=== PATIENT | female | born 1995 | race American Indian/Alaskan Native ===

== ENCOUNTER 2017-02-03 13:59 | Emergency (ER) | payer MEDICAID ==
[2017-02-03 14:17] VITALS: BP 121/75
--- NOTE | 2017-02-03 16:27 | Ultrasound Report ---
FINAL REPORT EXAM: US OB \T\gt; = 14 WEEKS FETUS HISTORY: unable to feel movement TECHNIQUE: Transabdominal sonography of the pelvis. PRIORS: None. FINDINGS: There is a single, live intrauterine in breech presentation. heart motion is detected and heart rate is 152 beats per minute. Placenta is located posterior and there is no evidence of previa. Cervical length 3.7 cm. Biometric data obtained and corresponds to an estimated gestational age of 17 weeks 6 days and an ultrasound estimated date of delivery of 08 July 2017 (it should be noted that an examination performed earlier in may yield more accurate dating). survey not performed. Amniotic fluid index is subjectively within normal limits. BPD: 3.95 cm HC: 14.35 cm AC: 11.32 cm FL: 2.75 cm Remainder of the uterus and adnexa grossly unremarkable. IMPRESSION: 1. Single, live intrauterine .
--- NOTE | 2017-02-03 18:25 | Emergency Department Report ---
Entered by AKIL LOW, acting as scribe for LEONARDO TERRELL NP. ED HPI - General Chief complaint: Urogenital-Female Stated complaint: 17 WEEKS PREG Time Seen by Provider: 02/03/17 14:25 Source: patient Mode of arrival: Ambulatory Limitations: No Limitations - History of Present Illness Initial comments: This is a 21 y/o female, nontoxic, well nourished in appearance, no acute signs of distress presents to the ER because she has not felt her baby moved since 1 week ago. Patient denies any abdominal pain, nausea, vomiting, fever, chills. dysuria, hematuria, vaginal discharge, vaginal bleeding, chest pain, SOB. Patient states she is approximately 17 1/2 weeks and she has an appointment with her OBGYN next week. Patient stated she does follow a OBGYN in [facility] that has been all normal during the office visits. No alleviating or aggravating factors. NKDA. , P:2, A:0. Complaint: other (haven't felt the baby moved ) Onset/Timin -: week(s) Consistency: constant Improves with: none Worsens with: none Associated symptoms: denies other symptoms. denies: nausea/vomiting, vaginal bleeding, vaginal discharge, abdominal pain, dysuria, headache, vision changes, malaise, dysparuenia, rash, seizure, shortness of breath, syncope, weakness, other (hematuria, fever, chills) Vaginal bleeding: none :: Yes Number of weeks : 17 OB History - Current : no complications OB History - Previous Pregnancies: no complications Pre-julián care: followed by OB - Related Data : 3 Para: 2 Ab: 0 Home Medications Medication Instructions Recorded Confirmed Last Taken No Known Home Medications [No 08/19/15 08/19/15 Unknown Reported Home Medications] Allergies Allergy/AdvReac Type Severity Reaction Status Date / Time No Known Allergies Allergy Verified 02/03/17 14:12 ED Review of Systems Comment: All other systems reviewed and negative Constitutional: denies: chills, fever Eyes: denies: eye pain, eye discharge, vision change ENT: denies: ear pain, throat pain Respiratory: denies: cough, shortness of breath, wheezing Cardiovascular: denies: chest pain, palpitations Endocrine: no symptoms reported Gastrointestinal: denies: abdominal pain, nausea, vomiting Genitourinary: denies: dysuria, hematuria, discharge, other (vaginal bleeding) Musculoskeletal: denies: back pain, joint swelling, arthralgia Skin: denies: rash, lesions Neurological: denies: headache, weakness, paresthesias Psychiatric: denies: anxiety, depression Hematological/Lymphatic: denies: easy bleeding, easy bruising ED Past Medical Hx - Past Medical History Previous Medical History?: No Hx Hypertension: No Hx Congestive Heart Failure: No Hx Diabetes: No Hx Deep Vein Thrombosis: No Hx Renal Disease: No Hx Sickle Cell Disease: No Hx Seizures: No Hx Asthma: No Hx COPD: No Hx HIV: No - Surgical History Past Surgical History?: No - Social History Smoking Status: Former Smoker Substance Use Type: None - Medications Home Medications: Home Medications Medication Instructions Recorded Confirmed Last Taken Type No Known Home Medications [No 08/19/15 08/19/15 Unknown History Reported Home Medications] ED Physical Exam - General Limitations: No Limitations General appearance: alert, in no apparent distress - Head Head exam: Present: atraumatic, normocephalic, normal inspection - Eye Eye exam: Present: normal appearance, PERRL, EOMI. Absent: scleral icterus, conjunctival injection, nystagmus, periorbital swelling, periorbital tenderness Pupils: Present: normal accommodation - ENT ENT exam: Present: normal exam, normal orophraynx, mucous membranes moist, TM's normal bilaterally, normal external ear exam - Neck Neck exam: Present: normal inspection, full ROM. Absent: tenderness, meningismus, lymphadenopathy, thyromegaly - Respiratory Respiratory exam: Present: normal lung sounds bilaterally. Absent: respiratory distress, wheezes, rales, rhonchi, stridor, chest wall tenderness, accessory muscle use, decreased breath sounds, prolonged expiratory - Cardiovascular Cardiovascular Exam: Present: regular rate, normal rhythm, normal heart sounds. Absent: bradycardia, tachycardia, irregular rhythm, systolic murmur, diastolic murmur, rubs, gallop - GI/Abdominal GI/Abdominal exam: Present: soft, normal bowel sounds. Absent: distended, tenderness, guarding, rebound, rigid, diminished bowel sounds - Rectal Rectal exam: Present: deferred - Extremities Exam Extremities exam: Present: normal inspection, full ROM, normal capillary refill. Absent: tenderness, pedal edema, joint swelling, calf tenderness - Back Exam Back exam: Present: normal inspection, full ROM. Absent: tenderness, CVA tenderness (R), CVA tenderness (L), muscle spasm, paraspinal tenderness, vertebral tenderness, rash noted - Neurological Exam Neurological exam: Present: alert, oriented X3, CN II-XII intact, normal gait, reflexes normal - Psychiatric Psychiatric exam: Present: normal affect, normal mood - Skin Skin exam: Present: warm, dry, intact, normal color. Absent: rash - Other Other exam information: 164 heart beat of fetas on Doppler portable ED Course Vital Signs 02/03/17 14:15 Temperature 98.6 F Pulse Rate 100 H Respiratory 18 Rate Blood Pressure 121/75 O2 Sat by Pulse 98 Oximetry - Reevaluation(s) Reevaluation #1: 02/03/17 14:51 Patient is able to speak in full sentences with no signs of distress noted. - Consultations Consultation #1: 02/03/17 16:34 [facility] attending cielo has been consulted about patient low HCG and normal US. Patient left AMA before was able to get a response from the attending on- call physician. ED Medical Decision Making - Medical Decision Making This is a 21-year-old female female that presents with concerns about 17 weeks . HCG is 15,000 and normal ultrasound measuring at 17 weeks 6 days. I consulted [facility] attending physician on-call regarding patient low hCG and normal ultrasound. Upon waiting for a response from the oncall attending patient stated she wants to leave AMA due to children at home. 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 ED Disposition Clinical Impression: Qualifiers: Weeks of gestation: 17 weeks Qualified Code(s): Z3A.17 - 17 weeks gestation of Disposition: DC-07 LEFT AGAINST MED ADVICE Is pt being admited?: No Does the pt Need Aspirin: No Condition: Stable Instructions: (ED) Additional Instructions: Follow-up with your REWORKER in 3-5 days or symptoms such as vaginal bleeding, nausea, vomiting, abdominal pain, has been short of breath return to the ER as possible Referrals: PRIMARY MD PADMINI [Primary Care Provider] - 3-5 Days JUSTICE WOLFE MD [Staff Physician] - 3-5 Days [facility] [Outside] - 3-5 Days [facility] [Outside] - 3-5 Days Forms: AMA Form This documentation as recorded by the DEVANTE rutledge ELIZABETH,accurately reflects the service I personally performed and the decisions made by me,LEONARDO TERRELL, MOUNIKA.
== END 2017-02-03 17:17 | disposition left against medical advice (07) ==
LOC: ED 13:59
DX: O36.8120 Decreased fetal movements, second trimester, not applicable or unspecified (principal); Z3A.17 17 weeks gestation of pregnancy
CPT/HCPCS: 36415; 76805; 84702

== ENCOUNTER 2017-06-29 16:57 | Inpatient (IN) | payer MEDICAID ==
--- NOTE | 2017-06-29 17:10 | History and Physical Report ---
History of Present Illness Date of examination: 06/29/17 Date of admission: 06/29/2017 Chief complaint: shabnam since 2pm started leaking yesterday History of present illness: 21 YO with care at [facility]. course uneventful. Was lost to care between 22 to 35 weeks. GBS negative. Past History Past Medical History: no pertinent history Past Surgical History: no surgical history BEHAVIOR SPECIALIST History: chlamydia Family/Genetic History: hypertension, cancer Social history: no significant social history - Obstetrical History Expected Date of Delivery: 07/11/17 Actual Gestation: 38 Week(s) 2 Day(s) : 3 Para: 2 Number of Living Children: 2 Medications and Allergies Allergies Allergy/AdvReac Type Severity Reaction Status Date / Time No Known Allergies Allergy Verified 02/03/17 14:12 Home Medications Medication Instructions Recorded Confirmed Last Taken Type No Known Home Medications [No 08/19/15 08/19/15 Unknown History Reported Home Medications] Review of Systems All systems: negative - Physical Exam Breasts: Positive: deferred Cardiovascular: Regular rate Lungs: Positive: Clear to auscultation Abdomen: Positive: normal appearance Vulva: both: normal Vagina: Positive: normal moisture Uterus: Positive: enlarged Anus/Rectum: Positive: normal perianal skin Extremities: Positive: normal Deep Tendon Reflex Grade: Normal +2 - Obstetrical FHR: category 1 Uterine Contraction Monitor Mode: External Cervical Dilatation: 9 Cervical Effacement Percentage: 100 station: 0 Uterine Contraction Pattern: Regular Uterine Contraction Intensity: Strong/Firm Results All other labs normal. Assessment and Plan A: Active labor at 38 + weeks P; Expect
[2017-06-29] MEDS ORDERED: PITOCin/NS 20 UNIT/1000ML DRIP 20,000 MILLIUNITS/1,000 ML BAG IV ONE (17:23)
--- NOTE | 2017-06-29 17:26 | Procedure Note ---
OB Delivery Note - Delivery Date of Delivery: 06/29/17 Surgeon: BALJEET GOLDSTEIN Estimated blood loss: 100cc - Vaginal Delivery presentation: vertex Delivery position: OA Intrapartum events: none Delivery monitor: external uterine Route of delivery: Delivery placenta: spontaneous Delivery laceration: none Anesthesia: none Delivery comments: of a viable female 5# 10oz @3658 on 06/29/17. Placenta delivered 3VCI. 8/9. FF @ U-2, lochia small. Mother and baby doing well. - Infant A at 1 minute: 8 at 5 minutes: 9 Gender: Female (5# 10 oz)
[2017-06-29] MEDS ORDERED: PITOCin/NS 20 UNIT/1000ML DRIP 20 UNITS/1,000 ML BAG IV SCH (18:00)
[2017-06-29] MEDS ORDERED: LACTATED RINGERS 1,000 ML IV SCH (18:00)
[2017-06-29] MEDS ORDERED: XYLOCAINE 2% INFILTRATI ONE (18:00)
[2017-06-29] MEDS ORDERED: TYLENOL PO PRN (18:05)
[2017-06-29] MEDS ORDERED: PHENERGAN PO PRN (18:05)
[2017-06-29] MEDS ORDERED: TUCKS PAD TP PRN (18:05)
[2017-06-29] MEDS ORDERED: LANSINOH TP PRN (18:05)
[2017-06-29] MEDS ORDERED: NORCO 5/325 PO PRN (18:05)
[2017-06-29] MEDS ORDERED: BENADRYL PO PRN (18:05)
[2017-06-29 18:31] LABS: Hematocrit 37.2 % (30.3-42.9); Hemoglobin 12.5 gm/dl (10.1-14.3); Mean Corpuscular HGB Conc 34 % (30-34); Mean Corpuscular Hemoglobin 31 pg (28-32); Mean Corpuscular Volume 93 fl (79-97); Platelet Count 189 K/mm3 (140-440); Red Cell Distribution Width 13.8 % (13.2-15.2)
[2017-06-29] MEDS ORDERED: SODIUM CHLORIDE FLUSH SYRINGE 10 ML IV SCH (19:00)
[2017-06-30] MEDS: MOTRIN PO SCH ×3 (02:19→13:29)
[2017-06-30 07:48] LABS: Hematocrit 35.2 % (30.3-42.9); Hemoglobin 11.7 gm/dl (10.1-14.3)
--- NOTE | 2017-06-30 12:36 | Progress Note ---
Assessment and Plan A: PPD #1 -stable P: Discharge home today Subjective - Subjective Date of service: 06/30/17 Principal diagnosis: Interval history: 21 YO with care at [facility]. course uneventful. Was lost to care between 22 to 35 weeks. GBS negative. Patient reports: appetite normal : doing well Objective - Vital Signs Latest vital signs: Vital Signs Temp Pulse Resp BP BP 06/30/17 08:52 98.3 F 64 18 105/75 06/30/17 05:24 18 06/30/17 00:30 98.6 F 68 16 113/67 06/29/17 20:30 98.6 F 69 16 105/61 06/29/17 18:39 74 103/69 06/29/17 18:24 71 113/74 06/29/17 18:23 71 112/73 06/29/17 18:10 75 110/73 06/29/17 18:09 98 F 16 06/29/17 17:55 81 114/65 Intake and Output 06/29/17 06/30/17 06/30/17 22:59 06:59 14:59 Intake Total 300 Output Total 1400 Balance -1100 Intake: Intake, Free Water 300 Output: Urine 1400 Void 1400 Other: Total, Output Amount 600 # Voids Void 1 1 Weight 205 lb Estimated Blood Loss 100 - Exam Breasts: Present: deferred Cardiovascular: Present: Regular rate Lungs: Present: Clear to auscultation Abdomen: Present: soft Vulva: both: normal Uterus: Present: fundal height below umbilicus Extremities: Present: normal Deep Tendon Reflex Grade: Normal +2 - Labs Labs: Abnormal lab results 06/29/17 Range/Units 18:15 WBC 14.4 H (4.5-11.0) K/mm3
--- NOTE | 2017-06-30 12:37 | Discharge Summary ---
Providers - Providers Date of Admission: 06/29/17 16:58 Date of discharge: 06/30/17 Attending physician: YISSEL SMALL MD Primary care physician: YISSEL SMALL MD Hospitalization Reason for admission: active labor Delivery: Episiotomy: none Laceration: none Discharge diagnosis: IUP at term delivered baby: female Condition at discharge: Good Disposition: DC-01 TO HOME OR SELFCARE Plan - Provider Discharge Summary Activity: routine, no sex for 6 weeks, no strenuous exercise Diet: routine Instructions: routine Additional instructions: [] Smoking cessation referral if applicable(refer to patient education folder for contact #) [] Refer to [facility] Booklet Call your doctor immediately for: * Fever > 100.5 * Heavy vaginal bleeding ( >1 pad per hour) * Severe persistent headache * Shortness of breath * Reddened, hot, painful area to leg or breast * Drainage or odor from incision. * Keep incision clean and dry at all times and follow doctor's instructions regarding bathing/showering - Follow up plan Follow up: YISSEL SMALL MD [Primary Care Provider] - 6 Weeks
[2017-06-30 21:42] VITALS: BP 104/64
== END 2017-06-30 21:30 | disposition home or self-care (01) | DRG 775 ==
LOC: TRG 16:57 → LD 16:58 → OB 20:09
PROVIDERS: ADMIT Obstetrics & Gynecology; ATTEND Obstetrics & Gynecology
PROC: 10E0XZZ Delivery of Products of Conception, External Approach (ICD-10-PCS; principal; 2017-06-29)
DX: O80 Encounter for full-term uncomplicated delivery (principal); Z3A.38 38 weeks gestation of pregnancy; Z37.0 Single live birth
CPT/HCPCS: 36415; 85014; 85018; 85027; 86850; 86900; 86901; J2590

== ENCOUNTER 2022-01-13 06:18 | Inpatient (IN) | payer MEDICAID ==
--- NOTE | 2022-01-13 07:00 | Procedure Note ---
OB Delivery Note - Delivery Date of Delivery: 01/13/22 Surgeon: NIKKIE DEUTSCH Estimated blood loss: 200cc - Vaginal Intrapartum events: no care Delivery induction: none Route of delivery: Delivery placenta: spontaneous Delivery cord: 3 umbilical vessels Episiotomy: none Delivery laceration: none Anesthesia: none Delivery comments: Patient is 26-year-old 7 para 6 who was brought in by EMS after spontaneous vaginal delivery at home. Patient has had no care. She is approximately 37 weeks based on an ultrasound in the ED a few months ago. According to the patient she has no other medical issues. She states that all of her previous children have been born vaginally. She denies taking any medications. She delivered a viable female weighing 6 pounds 12 ounces at home, with unknown Apgars. When patient presented to L&D the cord was seen hanging from the vagina and was clamped. Placenta was delivered spontaneously and intact with gentle traction on the cord. There was minimal bleeding. There appeared to be no placental abnormalities. There were no lacerations. The patient tolerated the procedure well. There was excellent hemostasis. - A Infant Gender: Female (6 pounds 12 ounces, 3027g)
--- NOTE | 2022-01-13 07:06 | History and Physical Report ---
History of Present Illness Date of examination: 01/13/22 Date of admission: 01/13/22 06:18 Chief complaint: I had a baby History of present illness: Patient is 26-year-old 7 para 6 who presented via EMS after spontaneous vaginal delivery at home. Patient reports only 1 visit during her and has otherwise had no care. Patient denies any medical issues during her . Patient denies drug use or smoking during her . She denies use of any medications. Reports no drug allergies. No labs or records are available for review. Patient states that her EDC of 02/01/22. Past History Past Medical History: no pertinent history Past Surgical History: no surgical history Family/Genetic History: none Social history: single - Obstetrical History Expected Date of Delivery: 02/01/22 Actual Gestation: 37 Week(s) 2 Day(s) : 7 Para: 6 Number of Living Children: 6 Medications and Allergies Allergies Allergy/AdvReac Type Severity Reaction Status Date / Time No Known Allergies Allergy Verified 02/03/17 14:12 Home Medications Medication Instructions Recorded Confirmed Last Taken Type Vit-Fe Fumar-FA [ 1 tab PO QDAY 03/22/19 03/22/19 03/21/19 History Vitamin] 1 tab Ibuprofen [Motrin 600 MG tab] 600 mg PO Q6H #30 tablet 06/23/20 Unknown Rx Review of Systems All systems: negative Ears, nose, mouth and throat: deferred Breasts: deferred Genitourinary: contractions Rectal Exam: deferred - Vital Signs Vital signs: Vital Signs Pulse BP Pulse Ox 90 142/82 99 01/13/22 06:21 01/13/22 06:21 01/13/22 06:21 Temp Pulse Resp BP Pulse Ox 79 135/77 99 01/13/22 06:56 01/13/22 06:42 01/13/22 06:56 - Physical Exam Breasts: Positive: deferred Cardiovascular: Regular rate, Normal S1, Normal S2 Lungs: Positive: Clear to auscultation, Normal air movement Abdomen: Positive: normal appearance, soft, normal bowel sounds Genitourinary (Female): Positive: normal external genitalia, normal perenium Vulva: both: normal Vagina: Positive: normal moisture Results All other labs normal. Assessment and Plan Patient admitted after spontaneous vaginal delivery at home. Will admit for care. We will manage pain and discomfort postdelivery as well. We will draw all labs.
[2022-01-13] MEDS ORDERED: ONDANSETRON 4 MG/2 ML INJ IV PRN (08:00)
[2022-01-13] MEDS ORDERED: LANOLIN/ZINC/DIMETHICONE (LANSINOH) 7 GM TP PRN (08:00)
[2022-01-13] MEDS ORDERED: PROMETHAZINE 25 MG TAB PO PRN (08:00)
[2022-01-13] MEDS ORDERED: diphenhydrAMINE 25 MG CAP PO PRN (08:00)
[2022-01-13] MEDS ORDERED: PROMETHAZINE 25 MG RECT SUPP PR PRN (08:00)
[2022-01-13] MEDS ORDERED: ACETAMINOPHEN 325 MG TAB PO PRN (08:00)
[2022-01-13] MEDS ORDERED: WITCH HAZEL/ GLYCERIN PAD TP PRN (08:00)
[2022-01-13 08:23] LABS: Basophils # (Auto) 0.1 K/mm3 (0.0-0.1); Basophils % (Auto) 0.7 % (0.0-1.8); Lymphocytes # (Auto) 1.7 K/mm3 (1.2-5.4); Lymphocytes % (Auto) 8.9 % (13.4-35.0); Mean Corpuscular HGB Conc 33 % (30-34); Mean Corpuscular Volume 97 fl (79-97); Monocytes # (Auto) 1.4 K/mm3 (0.0-0.8); Monocytes % (Auto) 7.5 % (0.0-7.3); Platelet Count 209 K/mm3 (140-440); Red Blood Count 4.01 M/mm3 (3.65-5.03); Red Cell Distribution Width 14.3 % (13.2-15.2)
[2022-01-13 08:37] LABS: Benzodiazepines Screen,Urine Negative; Cocaine Screen,Urine Negative; Methadone Screen,Urine Negative; Opiate Screen,Urine Negative
[2022-01-13 08:50] LABS: Amphetamine Screen,Urine Positive; Cannabinoid Screen,Urine Positive
[2022-01-13 09:04] LABS: Hepatitis C Virus Antibody Non-Reactive (NonReactive)
--- NOTE | 2022-01-13 09:27 | Event Note ---
Date: 01/13/22 Patient s/p home and placental delivery in hospital. Currently without complaint. Vitals stable, but BP mild range. Will continue to monitor. Orders for tranfer to Mother/Baby previously placed.
[2022-01-13] MEDS: PRENATAL VIT27-FE FUMARATE-FOLIC ACID VIT TAB PO SCH (09:52)
[2022-01-13] MEDS: IBUPROFEN 800 MG TAB PO SCH ×2 (09:52→15:47)
[2022-01-13] MEDS: DOCUSATE SODIUM 100 MG CAP PO SCH ×2 (09:53→22:50)
[2022-01-13] MEDS: SENNOSIDES/DOCUSATE SODIUM 8.6/50 MG TAB PO SCH ×2 (09:54→22:50)
[2022-01-13 21:26] LABS: Hematocrit 38.3 % (30.3-42.9); Hemoglobin 12.9 gm/dl (10.1-14.3)
[2022-01-13] MEDS ORDERED: MAGNESIUM HYDROXIDE (MOM) ORAL LIQD UDC PO PRN (22:00)
[2022-01-14] MEDS: IBUPROFEN 800 MG TAB PO SCH ×2 (00:08→09:31)
[2022-01-14] MEDS ORDERED: TETANUS,DIPH,PERTUSS(ACELL) VACCINE 0.5 ML SYRINGE IM ONE (07:51)
[2022-01-14] MEDS: SENNOSIDES/DOCUSATE SODIUM 8.6/50 MG TAB PO SCH (09:31)
[2022-01-14] MEDS: DOCUSATE SODIUM 100 MG CAP PO SCH (09:32)
[2022-01-14] MEDS: PRENATAL VIT27-FE FUMARATE-FOLIC ACID VIT TAB PO SCH (09:32)
[2022-01-14 10:26] VITALS: BP 111/68
--- NOTE | 2022-01-14 11:47 | Discharge Summary ---
Providers - Providers Date of Admission: 01/13/22 06:18 Date of discharge: 01/14/22 Attending physician: JAYLON AKERS 01/13/22 Consult to Case Management [CONS] Routine Services Needed at Discharge: Home Health Services Notified:: Yes Comment:: No care, +THC and amphetamines Primary care physician: JAYLON AKERS Hospitalization Condition: Good Hospital course: Patient presented after home delivery. Placenta in place and delivered without difficulty. Vitals reamined stable and H/H appropriate. Baby in NICU recovering well. Patient requests to go home. Stable for discharge on PPD #1 Disposition: 01 HOME / SELF CARE / HOMELESS Final Discharge Diagnosis (Prints w/discharge instructions): s/p - Discharge Diagnoses (1) (normal spontaneous vaginal delivery) Status: Acute Core Measure Documentation - Palliative Care Palliative Care/ Comfort Measures: Not Applicable - Core Measures Any of the following diagnoses?: none Exam - Constitutional Vitals: Temp Pulse Resp BP Pulse Ox 98.2 F 83 20 111/68 99 01/14/22 08:50 01/14/22 08:50 01/14/22 08:50 01/14/22 08:50 01/14/22 08:50 General appearance: Present: no acute distress, well-nourished - Respiratory Respiratory effort: normal - Extremities Extremities: pulses symmetrical, No edema - Abdominal General gastrointestinal: Present: soft, non-tender, other (fundus firm below umbilicus) Female genitourinary: Present: normal Plan Activity: other (Pelvic rest for 6 weeks. Nothing in the vagina including sex and tampons.) Weight Bearing Status: Full Weight Bearing Diet: regular Follow up with: JAYLON AKERS MD [Primary Care Provider] - 7 Days
== END 2022-01-14 12:40 | disposition home or self-care (01) | DRG 775 ==
LOC: LD 06:18 → OB 09:30
PROVIDERS: ADMIT Obstetrics & Gynecology; ATTEND Obstetrics & Gynecology
PROC: 10E0XZZ Delivery of Products of Conception, External Approach (ICD-10-PCS; principal; 2022-01-13)
PROC: 3E0234Z Introduction of Serum, Toxoid and Vaccine into Muscle, Percutaneous Approach (ICD-10-PCS; 2022-01-14)
DX: Z39.0 Encounter for care and examination of mother immediately after delivery (principal); Z23 Encounter for immunization; Z20.822 Contact with and (suspected) exposure to COVID-19
CPT/HCPCS: 36415; 80307; 85014; 85018; 85025; 86592; 86706; 86762; 86803; 86850; 86900; 86901; 87806; G0378; U0003